=== PATIENT | male | born 1995 | race Caucasian/White ===

== ENCOUNTER 2016-10-07 15:44 | Emergency (ER) | payer BC ==
[~2016-10-07] VITALS: Wt 65.9 kg
[~2016-10-07 15:44] MED LIST: NO MEDS
[2016-10-07] MEDS ORDERED: KETOROLAC 15 MG INJ IM STA (16:46)
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
[2016-10-07] MEDS ORDERED: DIAZEPAM 5 MG/ML SYG IM ONE (17:00)
[2016-10-07] MEDS ORDERED: NAPR-260 PO (17:38)
[2016-10-07] MEDS ORDERED: DIAZ-90 PO (17:39)
== END 2016-10-07 17:44 | disposition home or self-care (01) ==
LOC: FTE 15:44
DX: M54.2 Cervicalgia (principal)
CPT/HCPCS: 96372; J1885; J3360; Z7502

== ENCOUNTER 2016-11-23 14:01 | Emergency (ER) | payer BC ==
[~2016-11-23] VITALS: Ht 175.3 cm; Wt 65.0 kg
[~2016-11-23 14:01] MED LIST changes: +DIAZ-90 PO; +NAPR-260 PO
[2016-11-23 14:25] VITALS: Ht 175.3 cm; Wt 65.0 kg
[2016-11-23] MEDS ORDERED: NAPR-260 PO (15:27)
--- NOTE | 2016-11-23 16:00 | ERD ---
ER Documentation Chief Complaint Date/Time DATE: 11/23/16 TIME: 15:59 Chief Complaint BILATERAL KNEE PAIN FOR 2 WEEKS HPI This is a 21-year-old male who has no significant past medical history presents for bilateral knee pain for at least 2 weeks. 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 The patient denies any localized trauma, no fevers or chills no spreading redness. He denies any rashes to the palms or soles of his feet. He notes the pain is mild and throbbing to bilateral knees right greater than left. The pain is worse with movement and standing. ROS All systems reviewed and are negative except as per history of present illness. Medications Home Meds Active Scripts Naproxen* (Naprosyn*) 500 Mg Tablet, 500 MG PO BID Y for PAIN AND/OR INFLAMMATION, #30 TAB Prov:WENDY GARCÍA MD 11/23/16 Diazepam* (Valium*) 5 Mg Tablet, 5 MG PO Q8 for MUSCLE SPASMS, #10 TAB Prov:YADY,SYMONE 10/07/16 Naproxen* (Naprosyn*) 500 Mg Tablet, 500 MG PO BID Y for PAIN AND/OR INFLAMMATION, #20 TAB Prov:YADY,SYMONE 10/07/16 Reported Medications [No Meds] No Conflict Check 08/27/12 Allergies Allergies: Coded Allergies: No Known Drug Allergies (Verified Allergy, Mild, 10/07/16) PMhx/Soc History of Surgery: No (NO MEDICAL OR SURGICAL HISTORY) Anesthesia Reaction: No Hx Neurological Disorder: No Hx Respiratory Disorders: No Hx Cardiac Disorders: No Hx Psychiatric Problems: No Hx Miscellaneous Medical Probl: No Hx Alcohol Use: No Hx Substance Use: No Hx Tobacco Use: No FmHx Family History: No diabetes Physical Exam Vitals Vital Signs Date Time Temp Pulse Resp B/P Pulse Ox O2 Delivery O2 Flow Rate FiO2 11/23/16 14:25 98.3 63 18 129/79 100 Physical Exam General: Well developed, well nourished, no acute distress Head: Normocephalic, atraumatic. Eyes: EOM intact ENT: Moist mucous membranes Neck: Full ROM Respiratory: No respiratory distress Cardiovascular: Good capillary refil Abdominal: Nondistended : Deferred MSK: Bilateral knees without bony abnormalities or focal tenderness, no ligamentous instability. The patient has no effusion erythema warmth or tenderness. Full active and passive range of motion, negative Emmanuel test. Good capillary refilling 2+ dorsalis pedis and posterior tibial pulses bilaterally. No rash. Neurologic: Alert and oriented, moving all extremities, normal speech, steady gait Skin: No rash Psych: Normal mood Procedures/MDM The patient describes bilateral knee pain and seems to be consistent with overuse and likely localized inflammatory arthritis. No signs or symptoms concerning for gout, septic arthritis or fracture. I discussed the risks benefits alternatives of x-ray imaging. Given that the patient's exam is normal and the patient is amatory without difficulty I do not believe x-rays are necessary. Patient may require outpatient MRI imaging. The patient was advised to use a knee brace and better shoes when working. Nonsteroidal anti- inflammatory trial may also be reasonable. Again, no clinical signs or symptoms concerning for septic arthritis or gonococcal arthritis. The patient is young, healthy without past medical history that is significant. The patient did express a concern about lupus. He does have a remote family member who has lupus. I expanded the patient that localized knee pain likely secondary to overuse is not consistent with lupus. The patient does not exhibit any other systemic signs or symptoms concerning for lupus. Outpatient primary care referral was strongly recommended. We discussed follow up with the patient's primary care doctor within 24 to 48 hours as needed. We also discussed return to the emergency room for worsening symptoms or worsening condition. Outpatient referral: [None required] Discharge Medications: Naprosyn Departure Diagnosis: Primary Impression: Bilateral knee pain Chronicity: unspecified Qualified Code: M25.561 - Pain in both knees, unspecified chronicity Condition: Stable Patient Instructions: Reducing Knee Pain and Swelling, Knee Pain, Uncertain Cause Referrals: COMM[facility]ITY CLINICS YOU HAVE RECEIVED A MEDICAL SCREENING EXAM AND THE RESULTS INDICATE THAT YOU DO NOT HAVE A CONDITION THAT REQUIRES URGENT TREATMENT IN THE EMERGENCY DEPARTMENT. FURTHER EVALUATION AND TREATMENT OF YOUR CONDITION CAN WAIT UNTIL YOU ARE SEEN IN YOUR DOCTORS OFFICE WITHIN THE NEXT 1-2 DAYS. IT IS YOUR RESPONSIBILITY TO MAKE AN APPOINTMENT FOR FOLOW-UP CARE. IF YOU HAVE A PRIMARY DOCTOR --you should call your primary doctor and schedule an appointment IF YOU DO NOT HAVE A PRIMARY DOCTOR YOU CAN CALL OUR PHYSICIAN REFERRAL HOTLINE AT IF YOU CAN NOT AFFORD TO SEE A PHYSICIAN YOU CAN CHOSE FROM THE FOLLOWING [facility] [address] [facility] [address] [facility] [address] [facility] [address] [facility] [address] [facility] [facility] [address] [facility]. [facility] YOU HAVE RECEIVED A MEDICAL SCREENING EXAM AND THE RESULTS INDICATE THAT YOU DO NOT HAVE A CONDITION THAT REQUIRES URGENT TREATMENT IN THE EMERGENCY DEPARTMENT. FURTHER EVALUATION AND TREATMENT OF YOUR CONDITION CAN WAIT UNTIL YOU ARE SEEN IN YOUR DOCTORS OFFICE WITHIN THE NEXT 1-2 DAYS. IT IS YOUR RESPONSIBILITY TO MAKE AN APPOINTMENT FOR FOLOW-UP CARE. IF YOU HAVE A PRIMARY DOCTOR --you should call your primary doctor and schedule and appointment IF YOU DO NOT HAVE A PRIMARY DOCTOR YOU CAN CALL OUR PHYSICIAN REFERRAL HOTLINE AT . IF YOU CAN NOT AFFORD TO SEE A PHYSICIAN YOU CAN CHOSE FROM THE FOLLOWING [facility] INSTITUTIONS: [facility] [address] [place] [address] [facility] [address] [place] [address] [facility] [address] [place] [address] [facility] Care 7 a.m.- 11 p.m. Every Day of the Week NO APPOINTMENT OR AUTHORIZATION NEEDED [facility] Hours: Mon-Fri 9:00 AM - 5:00 PM Additional Instructions: you need to follow up with a PMD and need to see a energy specialist. Return for fevers or worsening pain. WENDY GARCÍA MD Nov 23, 2016 16:00
== END 2016-11-23 16:23 | disposition home or self-care (01) ==
LOC: FTE 14:01
DX: M25.561 Pain in right knee (principal); M25.562 Pain in left knee
CPT/HCPCS: 99283